=== PATIENT | male | born 1985 | race Caucasian/White ===

== ENCOUNTER 2019-12-12 17:15 | Emergency (ER) | payer MEDICAID ==
[2019-12-12] MEDS ORDERED: KETOROLAC TROMETHAMINE 60 MG/2 ML VIAL ONE (17:32)
== END 2019-12-12 18:03 | disposition home or self-care (01) ==
LOC: EDH 17:15
DX: K64.8 Other hemorrhoids (principal); F31.9 Bipolar disorder, unspecified; I10 Essential (primary) hypertension; Z72.0 Tobacco use
CPT/HCPCS: 96372; 99283; J1885